=== PATIENT | female | born 1970 | race Two or more races ===

== ENCOUNTER → 2016-08-01 | Outpatient (CLI) | payer BC | LOC: WI 09:07 | PROVIDERS: ATTEND Family Medicine | DX: Z12.31 Encounter for screening mammogram for malignant neoplasm of breast (principal) | CPT/HCPCS: 77067; G0202 ==

== ENCOUNTER 2016-09-08 19:49 | Emergency (ER) | payer BC ==
[2016-09-08] MEDS ORDERED: PROMETHAZINE HCL 25 MG TABLET PO ONE (20:16)
[2016-09-08] MEDS ORDERED: ACETAMINOPHEN 325 MG TABLET PO ONE (20:16)
[2016-09-08] MEDS ORDERED: IBUPROFEN 600 MG TABLET PO ONE (20:16)
--- NOTE | 2016-09-08 20:21 | ER Document Report ---
ED Medical Screen (RME) - General Chief Complaint: Lower Abdominal Pain Stated Complaint: ABDOMINAL PAIN,FEVER Notes: Patient began to experience pain in her left lower quadrant of the abdomen and left pelvic region this morning. She says the pain comes and goes. She's having her current menstrual cycle now. Patient still has periods and has had her tubes tied. Has not had any vomiting or diarrhea. Denies UTI symptoms. Has not noted a fever. Patient went to a local urgent care before coming here and they did a urinalysis and told her she needed to come here for imaging. She was told she had a fever at that urgent care. PMH: BTL, appendectomy. TRAVEL OUTSIDE OF THE [place] IN LAST 30 DAYS: No - Related Data Allergies/Adverse Reactions: No Known Allergies Allergy (Unverified 09/08/16 20:01) Past Medical History Renal/ Medical History: Denies: Hx Peritoneal Dialysis Physical Exam - Vital signs Vitals: Temp Pulse Resp BP Pulse Ox 98.4 F 78 16 117/80 100 09/08/16 19:56 09/08/16 19:56 09/08/16 19:56 09/08/16 19:56 09/08/16 19:56 Course - Vital Signs Vital signs: Temp Pulse Resp BP Pulse Ox 98.4 F 78 16 117/80 100 09/08/16 19:56 09/08/16 19:56 09/08/16 19:56 09/08/16 19:56 09/08/16 19:56
[2016-09-08 20:45] LABS: ABSOLUTE BASOPHILS # (AUTO) 0.1 10^3/uL (0.0-0.2); ABSOLUTE EOSINOPHILS # (AUTO) 0.1 10^3/uL (0.0-0.6); ABSOLUTE LYMPHOCYTES (AUTO) 1.1 10^3/uL (0.5-4.7); ABSOLUTE MONOCYTES (AUTO) 1.2 10^3/uL (0.1-1.4); ABSOLUTE NEUT (AUTO) 14.5 10^3/uL (1.7-8.2); BASOPHILS % (AUTO) 0.5 % (0-2); EOSINOPHILS % (AUTO) 0.7 % (0-6); HEMATOCRIT 39.7 % (36.0-47.0); HGB HCT DIFFERENCE -0.7; LYMPHOCYTES % (AUTO) 6.5 % (13-45); MEAN CORPUSCULAR HEMOGLOBIN 26.1 pg (27.0-33.4); MEAN CORPUSCULAR HGB CONC 32.7 g/dL (32.0-36.0); MEAN CORPUSCULAR VOLUME 80 fl (80-97); MONOCYTES % (AUTO) 7.2 % (3-13); RED BLOOD COUNT 4.96 10^6/uL (3.72-5.28); RED CELL DISTRIBUTION WIDTH 13.3 % (11.5-14.0); SEGMENTED NEUTROPHILS % (AUTO) 85.1 % (42-78); WHITE BLOOD COUNT 17.1 10^3/uL (4.0-10.5)
[2016-09-08 20:53] LABS: APPEARANCE,URINE CLEAR; BILIRUBIN,URINE NEGATIVE (NEGATIVE); GLUCOSE, URINE NEGATIVE (NEGATIVE); KETONES,URINE NEGATIVE (NEGATIVE); LEUKOCYTE ESTERASE,URINE NEGATIVE (NEGATIVE); NITRITE,URINE NEGATIVE (NEGATIVE); PROTEIN,URINE NEGATIVE (NEGATIVE); URINE SPECIFIC GRAVITY 1.014; UROBILINOGEN,URINE NEGATIVE mg/dL (<2.0)
[2016-09-08 20:58] LABS: ALANINE AMINOTRANSFERASE 32 U/L (9-52); ALBUMIN 4.6 g/dL (3.5-5.0); ALKALINE PHOSPHATASE 74 U/L (38-126); ANION GAP 14 (5-19); ASPARTATE AMINO TRANSFERASE 24 U/L (14-36); BILIRUBIN,DIRECT 0.2 mg/dL (0.0-0.4); BILIRUBIN,TOTAL 0.5 mg/dL (0.2-1.3); BLOOD UREA NITROGEN 10 mg/dL (7-20); CALCIUM 9.8 mg/dL (8.4-10.2); CARBON DIOXIDE 25 mmol/L (22-30); CHLORIDE 101 mmol/L (98-107); CREATININE RESULT 0.61 mg/dL (0.52-1.25); GLUCOSE 99 mg/dL (75-110); LIPASE 45.6 U/L (23-300); POTASSIUM 4.2 mmol/L (3.6-5.0); SODIUM 139.6 mmol/L (137-145); TOTAL PROTEIN 7.6 g/dL (6.3-8.2)
--- NOTE | 2016-09-08 22:33 | ER Document Report ---
ED General - General Chief Complaint: Lower Abdominal Pain Stated Complaint: ABDOMINAL PAIN,FEVER Notes: Patient is a 46-year-old female presents with complaint of left lower quadrant abdominal pain that started this morning. Some nausea but no vomiting. No diarrhea. No abnormal vaginal discharge. No abnormal bleeding. She just finished her menstrual. Today. No blood in her stool. No black or tarry stools. No fevers. She has previous history of tubal ligation and appendectomy. TRAVEL OUTSIDE OF THE [place] IN LAST 30 DAYS: No - Related Data Allergies/Adverse Reactions: No Known Allergies Allergy (Unverified 09/08/16 20:01) Past Medical History - Social History Smoking Status: Never Smoker Frequency of alcohol use: None Drug Abuse: None Family History: Reviewed & Not Pertinent Patient has suicidal ideation: No Patient has homicidal ideation: No Renal/ Medical History: Denies: Hx Peritoneal Dialysis Review of Systems - Review of Systems Notes: My Normal Review Basic REVIEW OF SYSTEMS: CONSTITUTIONAL : Denies fever, chills, or sweats. Denies recent illness. CARDIOVASCULAR: Denies chest pain. RESPIRATORY: Denies cough, cold, or chest congestion. Denies shortness of breath, difficulty breathing, or wheezing. GASTROINTESTINAL: Left lower quadrant abdominal pain Denies nausea, vomiting, or diarrhea. Denies constipation. Last BM: GENITOURINARY: Denies difficulty urinating, painful urination, burning, frequency, or blood in urine. FEMALE GENITOURINARY: Denies vaginal bleeding, abnormal or irregular periods. LMP: Just finished MUSCULOSKELETAL: Denies neck or back pain or joint pain or swelling. SKIN: Denies rash or skin lesions. NEUROLOGICAL: Denies altered mental status or loss of consciousness. Denies headache. Denies weakness or paralysis or loss of use of either side. Denies problems with gait or speech. Denies sensory or motor loss. ALL OTHER SYSTEMS REVIEWED AND NEGATIVE. Physical Exam - Vital signs Vitals: Temp Pulse Resp BP Pulse Ox 98.4 F 78 16 117/80 100 09/08/16 19:56 09/08/16 19:56 09/08/16 19:56 09/08/16 19:56 09/08/16 19:56 - Notes Notes: General Appearance: Well nourished, alert, cooperative, no acute distress, mild obvious discomfort. Well-appearing. Vitals: reviewed, See vital signs table. Head: no swelling or tenderness to the head Eyes: PERRL, EOMI, Conjuctiva clear Mouth: No decreasd moisture Lungs: No wheezing, No rales, No rhonci, No accessory muscle use, good air exchange bilaterally. Heart: Normal rate, Regular rythm, No murmur, no rub Abdomen: Normal BS, soft, No rigidity, mild left lower quadrant abdominal tenderness to palpation, No guarding, no rebound, no abdominal masses, no organomegaly Extremities: strength 5/5 in all extremities, good pulses in all extremities, no swelling or tenderness in the extremities, no edema. Skin: warm, dry, appropriate color, no rash Neuro: speech clear, oriented x 3, normal affect, responds appropriately to questions. Course - Vital Signs Vital signs: Temp Pulse Resp BP Pulse Ox 98.4 F 78 16 117/80 100 09/08/16 19:56 09/08/16 19:56 09/08/16 19:56 09/08/16 19:56 09/08/16 19:56 - Laboratory Result Diagrams: 09/08/16 18:20 09/08/16 18:20 Laboratory results interpreted by me: 09/08/16 09/08/16 18:20 18:20 WBC 17.1 H MCH 26.1 L Seg Neutrophils % 85.1 H Lymphocytes % 6.5 L Absolute Neutrophils 14.5 H Urine Blood LARGE H - Transfer of Care Notes: 09/09/16 00:[address] scan shows diverticulitis which is consistent with the patient's exam. There is no perforation or abscess on scan. Based on her exam I do not suspect perforation or abscess. Her abdomen is soft and nonrigid. She has pain only focal to the left lower quadrant. It is not severe. She refused any pain medicine during her stay in the ER. I verbally explained to her what diverticulitis is. I verbally informed her that it's extremely important that she returns ER immediately if she has any increasing pain, and her stool, vomiting, or fevers as these could be signs of perforation or abscess formation. Patient understands and agrees with plan and will be discharged home. Dictation of this chart was performed using voice recognition software; therefore, there may be some unintended grammatical errors. Discharge - Discharge Clinical Impression: Diverticulitis Qualifiers: Diverticulitis site: large intestine Diverticulitis bleeding: without bleeding Diverticulitis complication: without perforation or abscess Qualified Code(s): K57.32 - Diverticulitis of large intestine without perforation or abscess without bleeding Condition: Good Disposition: HOME, SELF-CARE Additional Instructions: Diverticulitis You have been diagnosed as having diverticulitis. This is an inflammation of a small pouch attached to the colon, called a diverticulum. Many of these small pouches can form on the colon as you get older. They are often caused by constipation. When inflamed or infected, symptoms arise -- usually abdominal pain, constipation or diarrhea, fever, and blood in the stool. Severe diverticulitis may require hospitalization. More mild cases are usually treated with antibiotics and clear liquid diet. As you improve, a diet low in residue (one which forms little stool) is prescribed. When you are better, you should eat a high-fiber diet. Stool softeners ( like Metamucil) are usually recommended. Call the doctor or go to the hospital if there is increasing pain, vomiting , high fever, large amounts of blood passed, or if bowel movements cease. Please return to ER immediately if you're having worsening pain, any fevers, vomiting, or feel that your symptoms are worsening in any way. Please follow- up with your doctor either tomorrow or Monday for close reevaluation. Prescriptions: Ciprofloxacin HCl [Cipro 500 mg Tablet] 500 mg PO BID #14 tablet Metronidazole [Flagyl 500 mg Tablet] 500 mg PO Q6H #28 tablet Forms: Return to Work Referrals: RAJESH GUERRA MD [Primary Care Provider] - 09/12/16
[2016-09-09] MEDS ORDERED: CIPROFLOXACIN HCL 500 MG TABLET PO ONE (00:03)
[2016-09-09] MEDS ORDERED: METRONIDAZOLE 500 MG TABLET PO ONE (00:03)
[2016-09-09 04:57] VITALS: BP 96/61
== END 2016-09-09 01:06 | disposition home or self-care (01) ==
LOC: ER 19:49
DX: K57.32 Diverticulitis of large intestine without perforation or abscess without bleeding (principal); R10.32 Left lower quadrant pain; R11.0 Nausea; Z90.49 Acquired absence of other specified parts of digestive tract; Z98.51 Tubal ligation status
CPT/HCPCS: 36415; 76380; 76830; 80053; 81001; 83690; 84703; 85025; 93976; 99284

== ENCOUNTER → 2018-04-11 | Outpatient (CLI) | payer BC ==
--- NOTE | 2018-04-11 16:02 | WOMENS IMAGING REPORT ---
EXAM DESCRIPTION: 3D SCREENING MAMMO BILAT COMPLETED DATE/TIME: 04/11/2018 1:04 pm REASON FOR STUDY: SCREENING MAMMO Z12.31 ENCNTR SCREEN MAMMOGRAM FOR MALIGNANT NEOPLASM OF SUSIE COMPARISON: 2015, 2016 TECHNIQUE: Standard craniocaudal and mediolateral oblique views of each breast recorded using digita l acquisition and breast tomosynthesis. LIMITATIONS: None. FINDINGS: No masses, calcifications or architectural distortion. No areas of suspicion. Read with the assistance of CAD. .[facility] - R2 [employer]ova Version 1.3 .[facility] - R2 Cenova Version 1.3 .[facility] - R2 Cenova Version 2.4 .[facility] [place] - R2 Cenova Version 2.4 .[facility] - R2 [employer] Version 9.2 IMPRESSION: NORMAL MAMMOGRAM. BIRADS 1. BREAST DENSITY: c. The breasts are heterogeneously dense, which may obscure small masses. BIRAD: 1 NEGATIVE RECOMMENDATION: ROUTINE SCREENING COMMENT: The patient has been notified of the results by letter per SA requirements. Additional no tification policies are in place for contacting patient with suspicious or incomplete findings. Quality ID #[id number]: The [employer] recommends an annual screening mammogram for women aged 40 years or over. This facility utilizes a reminder system to ensure that all patients receive reminder letters, and/or direct phone calls for appointments. This includes reminders for routine scr eening mammograms, diagnostic mammograms, or other Breast Imaging Interventions when appropriate. Th is patient will be placed in the appropriate reminder system. The [employer] ([employer]) has developed recommendations for screening MRI of the breast s in certain patient populations, to be used in conjunction with mammography. Breast MRI surveillanc e may be appropriate for women with more than 20% lifetime risk of developing breast cancer as deter mined by genetic testing, significant family history of the disease, or history of mantle radiation f or Hodgkins Disease. ACR Practice Guidelines 2008. DBT Technology DBT is a type of tomographic mammography. With conventional mammography, overlapping breast tissue ma y make lesions difficult to detect, even with good compression. DBT uses an x-ray tube that rotates a round the breast, taking images at different angles. These images are then combined to create thin sl ices of the breast that the radiologist can view as a 3D reconstruction. The [employer] unit can perform full-field digital mammograms (2D imaging); or DBT (3D imaging); or both, in a combination mode that quickly performs both the mammogram and the tomosynthesis scan while the breast is still compressed. PQRS 6045F: Fluoroscopic imaging is not utilized for breast tomosynthesis. TECHNICAL DOCUMENTATION: FINDING NUMBER: (1) ASSESSMENT: (1) JOB ID: [id number] [employer]- All Rights Reserved Reading location - IP/workstation name: [email or web address]
== END ==
LOC: WI 12:49
PROVIDERS: ATTEND Family Medicine
DX: Z12.31 Encounter for screening mammogram for malignant neoplasm of breast (principal)
CPT/HCPCS: 77063; 77067